=== PATIENT | male | born 1995 | race Caucasian/White ===

== ENCOUNTER 2017-07-29 02:26 | Emergency (ER) | payer OTHER ==
[~2017-07-29] VITALS: Ht 180.3 cm; Wt 82.0 kg
[2017-07-29 02:34] VITALS: BP 116/80; PULSE 90; RESP 16; O2SAT 94
--- NOTE | 2017-07-29 07:29 | PD ---
HPI Chief Complaint: Alcohol/Drug Intoxication Time Seen by Provider: 07:24 Travel History International Travel<30 days: No Contact w/Intl Traveler<30days: No Traveled to known affect area: No History of Present Illness HPI The patient is a 21-year-old male who presents emergency department for alcohol intoxication. The patient is currently visiting from [facility] in [place], [place], for spring. The patient was taken alcohol last night when he got from his friends. He was acutely intoxicated. He denies any physical complaints. He denies any headache, neck pain, chest pain, shortness breath, nausea, vomiting, or abdominal pain. Symptoms are mild to moderate, exacerbated after he drank alcohol, and there are no currently bleeding factors. FOR[facility]LY [facility], [facility] Past Medical History Medical History: Denies Significant Hx Past Surgical History Surgical History: No Previous Surgery Social History Alcohol Use: Yes Tobacco Use: No Substance Use: No Allergies-Medications (Allergen,Severity, Reaction): Coded Allergies: No Known Allergies (Unverified , 07/29/17) Review of Systems Except as stated in HPI: all other systems reviewed are Neg HENT: No: Headaches, Lightheadedness, Neck Pain Cardiovascular: No: Chest Pain or Discomfort Respiratory: No: Shortness of Breath Gastrointestinal: No: Nausea, Vomiting, Abdominal Pain Physical Exam Narrative GENERAL: Awake, alert, 21-year-old male appears his stated age is in no acute respiratory distress. SKIN: Focused skin assessment warm/dry. HEAD: Atraumatic. Normocephalic. EYES: Pupils equal and round. No scleral icterus. No injection or drainage. ENT: No nasal bleeding or discharge. Breath smells of alcohol. NECK: Trachea midline. No JVD. CARDIOVASCULAR: Regular rate and rhythm. No murmur appreciated. RESPIRATORY: No accessory muscle use. Clear to auscultation. Breath sounds equal bilaterally. GASTROINTESTINAL: Abdomen soft, non-tender, nondistended. No rebound tenderness. MUSCULOSKELETAL: No obvious deformities. No clubbing. No cyanosis. No edema. NEUROLOGICAL: Awake and alert. No obvious cranial nerve deficits. Motor grossly within normal limits. Normal speech. Oriented 4. PSYCHIATRIC: Appropriate mood and affect; insight and judgment normal. Data Data Last Documented VS Vital Signs Date Time Temp Pulse Resp B/P (MAP) Pulse Ox O2 Delivery O2 Flow Rate FiO2 07/29/17 02:34 90 16 116/80 (92) 94 Orders Orders Ed Discharge Order (07/29/17 07:24) MDM Medical Decision Making Medical Screen Exam Complete: Yes Emergency Medical Condition: Yes Medical Record Reviewed: Yes Differential Diagnosis Differential diagnoses includes alcohol abuse, alcohol intoxication, encephalopathy. Narrative Course The patient missed a drinking alcohol, was monitored in the emergency department , 4.5 hours after arrival the patient was more awake, alert, and able to ambulate. The patient will call for a ride back to the hotel. He is advised to decrease alcohol intake. Diagnosis Primary Impression: Alcohol intoxication Qualified Codes: F10.920 - Alcohol use, unspecified with intoxication, uncomplicated Patient Instructions: General Instructions Departure Forms: Tests/Procedures Additional Instructions: Decrease alcohol intake. Call for a ride home. Return if symptoms worsen or progress. Med/Other Pt SpecificInfo: No Change to Meds Disposition: 01 DISCHARGE HOME Condition: Stable Fernando Joyce MD Jul 29, 2017 07:28
[2017-07-29 09:21] VITALS: BP 117/63
== END 2017-07-29 09:23 | disposition home or self-care (01) ==
LOC: NEDAMB 02:26
DX: F10.920 Alcohol use, unspecified with intoxication, uncomplicated (principal)
CPT/HCPCS: 99283